=== PATIENT | female | born 1955 | race Caucasian/White ===

== ENCOUNTER 2017-05-30 17:17 | Inpatient (IN) | payer OTHER ==
[~2017-05-30] VITALS: Ht 170.2 cm; Wt 90.5 kg
[~2017-05-30 17:17] MED LIST: ABILIFY30 MG PO; ASPIR-LOW81 MG PO; ASPIRIN E.C.81 M1 PO; ASPIRIN325 MG PO; AZITHROMYCIN250 MG1 PO; BENTYL20 MG PO; CHRONULAC,CEPHU30 ML PO; CIPRO500 MG PO; CLONAZEPAM0.5 MG PO; COGENTIN1 MG PO; COGENTIN2 MG PO; COLACE100 MG PO; DAILY VITE WIT1 EACH PO; DEEP SEA 0.65% NS; DEPAKENE250 MG PO; DEPAKOTE250 MG PO; DEPAKOTE500 MG PO; DOXYCYCLINE HY100 M1 PO; FLAGYL500 MG PO; FLONASE16 GM NS; FLUVOXAMINE MA100 MG PO; FOSAMAX70 M1 PO; FOSAMAX70 MG PO; HALDOL1 MG PO; HALDOL10 MG PO; HALDOL2 MG PO; HALDOL5 MG PO; Haldol; INDERAL40 MG PO; KEFLEX500 MG PO; KLONOPIN1 MG PO; LEVOTHROID,SY0.05 MG PO; LOVAZA1 GM PO; Levothroid,Synthroid PO; MAALOX, MYLANTA30 ML PO; MIRALAX 527 GM527 GM NG; MIRALAX 527 GM527 GM PO; MIRALAX17 GM PO; MIRTAZAPINE45 MG PO; MULTIVITAMIN W PO; Miralax, Glycolax PO; OS-CAL 500+D C1 EAC1 PO; OS-CAL 500+D C1 EACH PO; OS-CAL 500+D31 EACH PO; Ocean Nasal 0.65% NS; PEPTO BISMOL240 ML PO; PLAVIX75 MG PO; PREPARATION H60 GM PR; PRILOSEC20 MG PO; PROPRANOLOL HCL40 MG PO; REGULOID POWDE540 G1 PO; SYNTHROID50 MCG PO; TRICOR145 MG PO; TRICOR48 MG PO; TRILEPTAL300 MG PO; TRILEPTAL600 MG PO; TYLENOL REGULA325 MG PO; TYLENOL325 M1 PO; VENTOLIN HFA18 GM IH; ZOCOR40 MG PO; ZOCOR80 M1 PO; ZOCOR80 MG PO; ZOLOFT25 MG PO
[2017-05-30 19:33] LABS: APPEARANCE SL.HAZY ((CLEAR)); BILIRUBIN NEGATIVE; BLOOD NEGATIVE; COLOR YELLOW ((YELLOW)); GLUCOSE (STRIP) NEGATIVE; KETONES NEGATIVE; LEUKOCYTES TRACE; NITRITE NEGATIVE; PROTEIN (STRIP) NEGATIVE; SPECIFIC GRAVITY 1.015 (1.000-1.030); UROBILINOGEN 0.2 MG/DL (0.2-1.0)
[2017-05-30 19:36] LABS: BACTERIA RARE /HPF; EPITHELIAL CELLS RARE /HPF; MUCUS TRACE /LPF; RED BLOOD CELLS 0-5 /HPF (0-5); UCUL ADDED? NO; WHITE BLOOD CELLS 0-5 /HPF (0-5)
[2017-05-30 19:51] LABS: HEMATOCRIT 40.3 % (36.0-46.0); HEMOGLOBIN 12.8 G/DL (11.9-15.5); MCH 26.5 PG (29.0-34.0); MCHC 31.8 G/DL (30.0-36.0); MCV 83.4 FL (83-99); PLATELET COUNT 210 K/uL (156-360); RBC DIS.WIDTH-CV 14.8 % (11.8-14.6); RBC DIS.WIDTH-SD 45.2 % (39-53); RED BLOOD COUNT 4.83 M/uL (3.80-5.20); WHITE BLOOD COUNT 6.8 K/uL (4.1-10.2)
[2017-05-30 20:01] LABS: ALBUMIN 3.7 g/dL (3.2-4.8); CHLORIDE 107 mEq/L (99-109); POTASSIUM 4.3 mEq/L (3.7-5.4); SODIUM 140 mEq/L (136-147)
[2017-05-30 20:03] LABS: GLUCOSE 100 mg/dL (70-99); TOTAL PROTEIN 6.8 g/dL (6.4-8.3)
[2017-05-30 20:05] LABS: TOTAL BILIRUBIN 0.1 mg/dL (0.0-1.0)
[2017-05-30 20:07] LABS: ALKALINE PHOSPHATASE 49 IU/L (3-129); CREATININE 0.6 mg/dL (0.6-1.3); GFR ESTIMATE (CALCULATED) > 59 mL/min/
[2017-05-30 20:08] LABS: UREA NITROGEN (BUN) 14 mg/dL (9-23)
[2017-05-30 20:09] LABS: AST (GOT) 36 IU/L (2-34)
[2017-05-30 20:10] LABS: ALT (GPT) 33 IU/L (3-49)
[2017-05-30] MEDS ORDERED: LUVOX50 MG PO (22:53)
[2017-05-30] MEDS ORDERED: FAMCICLOVIR500 MG PO (22:55)
[2017-05-30] MEDS ORDERED: PREPARATION H O28 GM PR (22:56)
[2017-05-30] MEDS ORDERED: DUONEB 2.5-0.5 M3 ML AEROSOL (22:56)
[2017-05-30] MEDS ORDERED: SALINE NOSE SPR45 M1 BOTH NARES (22:57)
[2017-05-31 09:57] LABS: HEMATOCRIT 40.9 % (36.0-46.0); MCH 26.5 PG (29.0-34.0); MCHC 31.8 G/DL (30.0-36.0); MCV 83.3 FL (83-99); PLATELET COUNT 204 K/uL (156-360); RBC DIS.WIDTH-CV 14.6 % (11.8-14.6); RBC DIS.WIDTH-SD 44.9 % (39-53); RED BLOOD COUNT 4.91 M/uL (3.80-5.20); WHITE BLOOD COUNT 5.6 K/uL (4.1-10.2)
[2017-05-31 10:10] LABS: CHLORIDE 105 mEq/L (99-109); POTASSIUM 4.4 mEq/L (3.7-5.4); SODIUM 139 mEq/L (136-147)
[2017-05-31 10:12] LABS: GLUCOSE 237 mg/dL (70-99)
[2017-05-31 10:15] LABS: CREATININE 0.7 mg/dL (0.6-1.3); GFR ESTIMATE (CALCULATED) > 59 mL/min/
[2017-05-31 10:16] LABS: UREA NITROGEN (BUN) 11 mg/dL (9-23)
[2017-06-01 00:14] VITALS: BP 127/60
[2017-06-01 08:37] VITALS: BP 170/77
[2017-06-01 10:12] LABS: CHLORIDE 102 MEQ/L (99-109); POTASSIUM 4.3 MEQ/L (3.7-5.4); SODIUM 139 MEQ/L (136-147)
[2017-06-01 10:17] LABS: CREATININE 0.6 MG/DL (0.6-1.3); GFR ESTIMATE (CALCULATED) > 59 mL/min/; GLUCOSE 125 mg/dL (70-99); UREA NITROGEN (BUN) 16 mg/dL (9-23)
[2017-06-01] MEDS ORDERED: OSELTAMIVIR PHO75 MG PO (10:51)
== END 2017-06-01 12:04 | disposition home health service (06) | DRG 193 ==
LOC: EME 17:17 → EDOF 05-31 02:11 → ENRESERV 05-31 02:15 → 4SOUTH 05-31 14:35
PROVIDERS: Hospitalist; Internal Medicine; Nurse Practitioner Family
DX: J10.1 Influenza due to other identified influenza virus with other respiratory manifestations (principal); J96.01 Acute respiratory failure with hypoxia; J20.9 Acute bronchitis, unspecified; F79 Unspecified intellectual disabilities; E66.9 Obesity, unspecified; I51.7 Cardiomegaly; G40.909 Epilepsy, unspecified, not intractable, without status epilepticus; E03.9 Hypothyroidism, unspecified; F63.9 Impulse disorder, unspecified; F60.3 Borderline personality disorder; F03.90 Unspecified dementia, unspecified severity, without behavioral disturbance, psychotic disturbance, mood disturbance, and anxiety
CPT/HCPCS: 71046; 74018; 74176; 80048; 80053; 81003; 83605; 85027; 87040; 87502; 87651 90; 94640; 94640 76; 94799; 99202; J1100; J1650; J7030